=== PATIENT | male | born 1960 | race Native Hawaiian/Other Pacific Islander ===

== ENCOUNTER → 2016-09-23 10:09 | Outpatient (CLI) | payer OTHER ==
[~2016-09-23 10:09] MED LIST: DIAZ2TAB PO; TESTOST ENA200 MG/ML IM; TRIAMTERENE/HYD1 CAP PO
== END | disposition home or self-care (01) ==
LOC: AMB 10:09
DX: R07.89 Other chest pain (principal); Z74.3 Need for continuous supervision
CPT/HCPCS: A0425; A0427

== ENCOUNTER 2016-09-23 10:16 | Observation (INO) | payer OTHER ==
[2016-09-23] VITALS (9 sets, daily range): BP systolic 114–145; BP diastolic 67–84; TEMP 97.6–98; Ht 177.8 cm; Wt 85.5 kg
[~2016-09-23] VITALS: Ht 177.8 cm; Wt 85.5 kg
[2016-09-23 10:37] LABS: PLATELET COUNT 303 K/uL (142-355); POTASSIUM 4.1 mmol/L (3.6-5.2); SODIUM 134 mmol/L (136-145)
[2016-09-23 11:27] LABS: PARTIAL THROMBOPLASTIN TIME 22.8 SECONDS (24.5-33.6)
[2016-09-23] MEDS ORDERED: DIAZ2TAB PO (19:03)
[2016-09-23] MEDS ORDERED: TRIAMTERENE/HYD1 CAP PO (19:05)
[2016-09-23] MEDS ORDERED: TESTOST ENA200 MG/ML IM (19:07)
[2016-09-24] VITALS: BP 101/49; TEMP 97.6
[2016-09-24 04:00] VITALS: BP 93/62; TEMP 97.9
[2016-09-24 05:27] LABS: PLATELET COUNT 239 K/uL (142-355)
[2016-09-24 05:37] LABS: POTASSIUM 3.5 mmol/L (3.6-5.2)
[2016-09-24 08:28] VITALS: BP 113/73; TEMP 98.6
[2016-09-24 18:57] VITALS: BP 161/89; TEMP 97.5
== END 2016-09-24 14:15 | disposition left against medical advice (07) ==
LOC: ED 10:16 → MED/SURG 11:51
PROVIDERS: Emergency Medicine; ADMIT Emergency Medicine
DX: R07.89 Other chest pain (principal); I10 Essential (primary) hypertension; K21.9 Gastro-esophageal reflux disease without esophagitis; R10.816 Epigastric abdominal tenderness; R06.02 Shortness of breath
CPT/HCPCS: 36415; 80053; 82150; 82550; 83690; 83735; 83880; 84484; 85027; 85610; 85730; 93005; 96360; 96361; 96365; 96366; 96372; 96374; 96375; 99220; 99284; G0378; J1650; J2270; J2405

== ENCOUNTER 2018-11-08 10:03 | Outpatient (CLI) | payer OTHER | END 2018-11-08 10:22 | disposition short-term general hospital (02) | LOC: AMB 10:03 | DX: R42 Dizziness and giddiness (principal); R11.2 Nausea with vomiting, unspecified | CPT/HCPCS: A0425; A0427 ==

== ENCOUNTER 2020-01-17 14:24 | Outpatient (CLI) | payer OTHER | END 2020-01-17 19:53 | disposition home or self-care (01) | LOC: MRI 14:24 | DX: Q04.6 Congenital cerebral cysts (principal) ==